=== PATIENT | male | born 1955 | race Caucasian/White ===

== ENCOUNTER 2018-05-14 10:00 | Emergency (ER) | payer BC ==
--- NOTE | 2018-05-14 10:55 | ER Document Report ---
ED Medical Screen (RME) - General Chief Complaint: Neck Pain >24hrs old Stated Complaint: HEAD/NECK PAIN, VISION ISSUE Time Seen by Provider: 05/14/18 10:54 Mode of Arrival: Ambulatory Information source: Patient TRAVEL OUTSIDE OF THE [place] IN LAST 30 DAYS: No - HPI Patient complains to provider of: neck pain Onset: Other - pt with several month h/o neck pain; denies trauma - Related Data Allergies/Adverse Reactions: No Known Allergies Allergy (Verified 05/14/18 10:03) Physical Exam - Vital signs Vitals: Temp Pulse Resp BP Pulse Ox 97.5 F 59 L 12 112/65 96 05/14/18 10:12 05/14/18 10:12 05/14/18 10:12 05/14/18 10:12 05/14/18 10:12 Course - Vital Signs Vital signs: Temp Pulse Resp BP Pulse Ox 97.5 F 59 L 12 112/65 96 05/14/18 10:12 05/14/18 10:12 05/14/18 10:12 05/14/18 10:12 05/14/18 10:12
--- NOTE | 2018-05-14 11:29 | RADIOLOGY REPORT (SQ) ---
EXAM DESCRIPTION: CERV SP 4 OR 5 VIEWS COMPLETED DATE/TIME: 05/14/2018 11:18 am REASON FOR STUDY: neck pain COMPARISON: None. NUMBER OF VIEWS: Five views. TECHNIQUE: AP, lateral, obliques and odontoid radiographic images acquired of the cervical spine. LIMITATIONS: None. FINDINGS: MINERALIZATION: Normal. ALIGNMENT: Mild anterolisthesis of C7 on T1. VERTEBRAE: Vertebral bodies of normal height. DISCS: Degenerative disc disease with disc space narrowing C6-7. . Scattered additional osteophytes . FORAMINA: No osteophytes or foraminal narrowing. LATERAL AND POSTERIOR ELEMENTS: Facets, lateral masses and spinous processes without significant find ings. HARDWARE: None in the spine. SOFT TISSUES: No masses or calcifications. Lung apices clear. OTHER: No other significant finding. IMPRESSION: Degenerative disc disease most prominent C6-7. TECHNICAL DOCUMENTATION: JOB ID: [id number] [employer]- All Rights Reserved Reading location - IP/workstation name: [email or web address]
--- NOTE | 2018-05-14 12:03 | RADIOLOGY REPORT (SQ) ---
EXAM DESCRIPTION: CT HEAD WITHOUT COMPLETED DATE/TIME: 05/14/2018 11:52 am REASON FOR STUDY: pt reports "dent" in head in occipital region COMPARISON: None. TECHNIQUE: Axial images acquired through the brain without intravenous contrast. Images reviewed wi th bone, brain and subdural windows. Additional sagittal and coronal reconstructions were generated. Images stored on PACS. All CT scanners at this facility use dose modulation, iterative reconstruction, and/or weight based d osing when appropriate to reduce radiation dose to as low as reasonably achievable (ALARA). [facility]: Dose Right [facility]: CareDose [facility]: Dose Right [facility]: Teradose 4D [facility]: [employer]armaDiagnostics RADIATION DOSE: CT Rad equipment meets quality standard of care and radiation dose reduction techniq ues were employed. CTDIvol: 48.7 mGy. DLP: 1004 mGy-cm. mGy. LIMITATIONS: None. FINDINGS: VENTRICLES: Normal size and contour. CEREBRUM: No masses. No hemorrhage. No midline shift. No evidence for acute infarction. Normal gra y/white matter differentiation. No areas of low density in the white matter. CEREBELLUM: No masses. No hemorrhage. No alteration of density. No evidence for acute infarction. EXTRAAXIAL SPACES: No fluid collections. No masses. ORBITS AND GLOBE: No intra- or extraconal masses. Normal contour of globe without masses. CALVARIUM: No fracture. PARANASAL SINUSES: Left maxillary sinus disease. SOFT TISSUES: No mass or hematoma. OTHER: No other significant finding. IMPRESSION: NORMAL BRAIN CT WITHOUT CONTRAST. EVIDENCE OF ACUTE STROKE: NO. COMMENT: Quality ID # [id number]: Final reports with documentation of one or more dose reduction techniques (e.g., Automated exposure control, adjustment of the mA and/or kV according to patient size, use of iterative reconstruction technique) TECHNICAL DOCUMENTATION: JOB ID: [id number] [employer]- All Rights Reserved Reading location - IP/workstation name: [email or web address]
[2018-05-14] MEDS ORDERED: LIDOCAINE 5% (700 MG) TRANSDERMAL ADH..PATCH TP ONE (12:24)
--- NOTE | 2018-05-14 12:27 | ER Document Report ---
HPI - HPI Time Seen by Provider: 05/14/18 10:54 Pain Level: 2 Notes: Patient is an otherwise healthy 62-year-old male presenting with chief complaint of neck pain over the last 6 months. Patient denies any fevers or other symptoms. States that he thinks it is "wear and tear on his body due to years of working". Patient also reports that his was feeling his head and felt a dent in the back of his skull a few days ago. Patient denies any direct trauma. - CONSTITUTIONAL Constitutional: DENIES: Fever, Chills - EENT EENT: REPORTS: Eye problems - blurry vision, see note Past Medical History - General Information source: Patient - Social History Smoking Status: Former Smoker Frequency of alcohol use: None Drug Abuse: None Family History: Reviewed & Not Pertinent Patient has suicidal ideation: No Patient has homicidal ideation: No - Medical History Medical History: Negative Renal/ Medical History: Denies: Hx Peritoneal Dialysis Surgical Hx: Negative - Immunizations Immunizations up to date: Yes Vertical Provider Document - CONSTITUTIONAL Notes: PHYSICAL EXAMINATION: GENERAL: Well-appearing, well-nourished and in no acute distress. HEAD: Atraumatic, normocephalic. Small area of indentation noted to left occipital region. EYES: Pupils equal round extraocular movements intact, conjunctiva are normal. ENT: Nares patent NECK: Normal range of motion, tenderness to palpation along bilateral sides of neck, no vertebral tenderness, no step-off or deformity. LUNGS: No respiratory distress Musculoskeletal: Normal range of motion NEUROLOGICAL: Normal speech, normal gait. PSYCH: Normal mood, normal affect. SKIN: Warm, Dry, normal turgor, no rashes or lesions noted. - INFECTION CONTROL TRAVEL OUTSIDE OF THE [place] IN LAST 30 DAYS: No Course - Re-evaluation Re-evalutation: Head CT was performed to evaluate the "dent" that patient feels is in the back of his head. The head CT was unremarkable. No acute findings. Cervical spine x-rays reveal arthritic changes in the neck. Patient will be discharged home in stable condition. Encouraged to establish care with a primary care physician. - Vital Signs Vital signs: Temp Pulse Resp BP Pulse Ox 97.5 F 59 L 12 112/65 96 05/14/18 10:12 05/14/18 10:12 05/14/18 10:12 05/14/18 10:12 05/14/18 10:12 Discharge - Discharge Clinical Impression: Arthritis Condition: Stable Disposition: HOME, SELF-CARE Additional Instructions: Arthritis Your symptoms are due to arthritis. Arthritis is an inflammation of the joints. There are many types -- osteoarthritis (due to "wear and tear"), auto- immmune arthritis (such as rheumatoid, lupus, Heriberto's, and others), and c rystal-induced arthritis (such as gout and pseudogout). The physician's examination, combined with laboratory tests, will determine the cause of your arthritis. All types of arthritis are treated with antiinflammatory medications. Other medication may be required for special types of arthritis, or if your problem does not respond to the antiinflammatory medicine. Local warmth may be helpful. Move the involved joints through the full range of motion daily. Mild exercise is usually still possible for most persons with arthritis (ask your physician). Swimming provides good exercise without damaging the joints. Contact the physician if you are worsening in any way. The head CT was normal, there is no depression in your skull that is notated on the CT report. Your x-rays show that you have arthritis in your neck. You should try taking ibuprofen 600 mg every 6 hours. Use the Lidoderm patches that I have prescribed, some insurances do not cover them as they are also available [id number]. You may try the one that we put on you today and if it helps consider purchasing some or getting the prescription filled tomorrow. Please follow-up with your primary care provider, I have provided several numbers below for you. Prescriptions: Lidocaine [Lidoderm 5% (700 mg) Transdermal Patch] 1 patch TP DAILY #30 adh..patch Referrals: CHRISSY GOLDSTEIN MD [ACTIVE STAFF] - Follow up as needed LIZZETTE ORLANDO DO [NO LOCAL MD] - Follow up as needed ERASMO ALVES NP [COMMUNITY BASED STAFF] - Follow up as needed
[2018-05-14 12:55] VITALS: BP 118/76
== END 2018-05-14 12:54 | disposition home or self-care (01) ==
LOC: ER 10:00
DX: M50.323 Other cervical disc degeneration at C6-C7 level (principal); H53.8 Other visual disturbances
CPT/HCPCS: 70450; 72050; 99284